=== PATIENT | female | born 1945 | race American Indian/Alaskan Native ===

== ENCOUNTER 2017-01-07 09:27 | Day surgery (SDC) | payer MEDICARE, OTHER ==
[2016-12-29 15:08] VITALS: BMI 32.3
[2017-01-07] MEDS ORDERED: Propofol 10 mg/ml Inj (20 ML) ONE (11:20)
[2017-01-07] MEDS ORDERED: Lidocaine 2% Inj (20ml) ONE (11:20)
[2017-01-07] MEDS ORDERED: Sodium Chloride 0.9% 1,000 ML IV SCH (12:30)
[2017-01-07 12:33] VITALS: RESP 16
[2017-01-07 13:30] VITALS: BP 151/79; PULSE 77; TEMP 97.8; O2SAT 97
== END 2017-01-07 14:27 | disposition home or self-care (01) ==
LOC: ENDO 09:27
PROVIDERS: ATTEND Internal Medicine Gastroenterology
DX: Z12.11 Encounter for screening for malignant neoplasm of colon (principal); K29.70 Gastritis, unspecified, without bleeding; K44.9 Diaphragmatic hernia without obstruction or gangrene; D12.5 Benign neoplasm of sigmoid colon; K63.5 Polyp of colon; I10 Essential (primary) hypertension; E78.5 Hyperlipidemia, unspecified; E66.01 Morbid (severe) obesity due to excess calories
CPT/HCPCS: 43239; 45390; 88305; 88342; J2704; J7040 ×2

== ENCOUNTER 2017-01-27 12:05 | Emergency (ER) | payer MEDICARE, OTHER ==
[2017-01-27 12:05] VITALS: BMI 32.3
[2017-01-27 12:15] VITALS: RESP 16; TEMP 97.8
--- NOTE | 2017-01-27 13:12 | ED PDOC ---
Arrival/HPI - General Chief Complaint: Hip Pain Time Seen by Provider: 01/27/17 12:18 Historian: Patient - History of Present Illness Narrative History of Present Illness (Text): 01/27/17 12:53 71yo female with PMHx of left gluteal pain x one week. States Pain is when she moves in certain positions or turns. Notes history of right knee pain, states she sees orthopaedist for the pain. States she did not take any analgesic. Denies trauma, fall, saddle anesthesia, focal weakness, abdominal pain, urinary/ fecal incontinence, any other complaint. Past Medical History - Provider Review Nursing Documentation Reviewed: Yes - Infectious Disease Hx of Infectious Diseases: None - Tetanus Immunization Tetanus Immunization: Unknown - Cardiac Hx Hypertension: Yes - Pulmonary Hx Respiratory Disorders: No - Neurological Hx Neurological Disorder: No - HEENT Hx HEENT Disorder: No - Renal Hx Renal Disorder: No - Endocrine/Metabolic Hx Endocrine Disorders: No - Hematological/Oncological Hx Anemia: Yes Hx Blood Transfusions: Yes - Integumentary Hx Dermatological Disorder: No - Musculoskeletal/Rheumatological Hx Musculoskeletal Disorders: Yes Hx Arthritis: Yes - Gastrointestinal Hx Gastrointestinal Disorders: No - Genitourinary/Gynecological Hx Genitourinary Disorders: No - Psychiatric Hx Psychophysiologic Disorder: No Hx Emotional Abuse: No Hx Physical Abuse: No Hx Substance Use: No - Surgical History Hx Cholecystectomy: Yes Hx Hysterectomy: Yes Hx Orthopedic Surgery: Yes (R KNEE, R WRIST) - Anesthesia Hx Anesthesia Reactions: No Hx Malignant Hyperthermia: No - Suicidal Assessment Feels Threatened In Home Enviroment: No Family/Social History - Physician Review Nursing Documentation Reviewed: Yes Family/Social History: Unknown Family HX Smoking Status: Former Smoker Hx Alcohol Use: No Hx Substance Use: No Allergies/Home Meds Allergies/Adverse Reactions: Allergies aspirin Adverse Reaction (Verified 01/27/17 12:07) VOMITING Home Medications: Home Meds Medication Instructions Recorded Confirmed Vitamin B Complex & Vitamin C 1 tab PO DAILY 07/28/12 01/27/17 [Strovite] Atorvastatin [Lipitor] 80 mg PO HS 03/26/16 01/27/17 amLODIPine [Norvasc] 10 mg PO DAILY 03/26/16 01/27/17 Ezetimibe 10 mg PO DAILY 12/29/16 01/27/17 Triamterene/Hydrochlorothiazid 1 tab PO DAILY 12/29/16 01/27/17 [Triamterene-Hctz 37.5-25 mg Cp] Calcium Carbonate/Vitamin D3 1 each PO BID 01/07/17 01/27/17 [Calcium 500-Vit D3 600 Tablet] Review of Systems - Physician Review All systems were reviewed & negative as marked: Yes - Review of Systems Constitutional: Normal Eyes: Normal ENT: Normal Respiratory: Normal Cardiovascular: Normal Gastrointestinal: Normal Genitourinary Female: Normal Musculoskeletal: Arthralgias (Left gleuteus pain) Skin: Normal Neurological: Normal Endocrine: Normal Hemo/Lymphatic: Normal Psychiatric: Normal Physical Exam Vital Signs Temp Pulse Resp BP Pulse Ox 01/27/17 14:23 65 16 150/84 97 01/27/17 12:10 97.8 F 77 16 150/90 99 Temperature: Afebrile Blood Pressure: Normal Pulse: Regular Respiratory Rate: Normal Appearance: Positive for: Well-Appearing, Non-Toxic, Comfortable Pain Distress: None Mental Status: Positive for: Alert and Oriented X 3 - Systems Exam Head: Present: Atraumatic, Normocephalic Pupils: Present: PERRL Extroacular Muscles: Present: EOMI Conjunctiva: Present: Normal Mouth: Present: Moist Mucous Membranes Neck: Present: Normal Range of Motion Respiratory/Chest: Present: Clear to Auscultation, Good Air Exchange. No: Respiratory Distress, Accessory Muscle Use Cardiovascular: Present: Regular Rate and Rhythm, Normal S1, S2. No: Murmurs Abdomen: Present: Normal Bowel Sounds. No: Tenderness, Distention, Peritoneal Signs Back: Present: Normal Inspection Upper Extremity: Present: Normal Inspection. No: Cyanosis, Edema Lower Extremity: Present: Normal Inspection, NORMAL PULSES, Normal ROM, Neurovascularly Intact. No: Edema, CALF TENDERNESS, Cem's Sign, Tenderness, Swelling, Erythema, Deformity, Temperature Abnormalties Neurological: Present: GCS=15, CN II-XII Intact, Speech Normal Skin: Present: Warm, Dry, Normal Color. No: Rashes Psychiatric: Present: Alert, Oriented x 3, Normal Insight, Normal Concentration Medical Decision Making ED Course and Treatment: 01/27/17 20:05 Hip xray - Extensive left hip DJD noted. Result was DW the pt. She declined pain medication in ED. Ambualtory with a cane. She noted that she had similar pain on her right hip which improved after she was given ???IM injection to the area by her PMD. She plan to f/u with her PMD. TRT ED for any new or worsening symptoms. - RAD Interpretation Radiology Orders: 01/27/17 12:22 SACRUM &/or COCCYX (MIN 2VW) [RAD] Stat 01/27/17 12:24 Hip Bilateral [HIP MIN 3V W/ PELVIS ELOINA] [RAD] Stat - Medication Orders Current Medication Orders: Discontinued Medications Tramadol HCl (Ultram) 50 mg PO STAT STA Stop: 01/27/17 12:29 Last Admin: 01/27/17 13:00 Dose: Not Given Non-Admin Reason: Patient Refused Disposition/Present on Arrival - Present on Arrival Any Indicators Present on Arrival: No History of DVT/PE: No History of Uncontrolled Diabetes: No Urinary Catheter: No History of Decub. Ulcer: No History Surgical Site Infection Following: None - Disposition Have Diagnosis and Disposition been Completed?: Yes Diagnosis: Hip pain Disposition: HOME/ ROUTINE Disposition Time: 13:55 Patient Plan: Discharge Condition: STABLE Discharge Instructions (ExitCare): Hip Pain (ED) Additional Instructions: Follow up with your Orthopedist Return to ED for any new or worsening symptoms Prescriptions: traMADol [Ultram] 50 mg PO TID #10 tab Referrals: Jose Ramon Monet MD [Primary Care Provider] - Follow up with primary Jefe Collier MD [Staff Provider] - Follow up with primary
[2017-01-27 14:25] VITALS: BP 150/84; PULSE 65; O2SAT 97
--- NOTE | 2017-01-27 15:31 | RAD ---
PROCEDURE: Radiographs of the Sacrum and Coccyx HISTORY: Left gluteal pain COMPARISON: None available. TECHNIQUE: Frontal and lateral views of the sacrum and coccyx FINDINGS: BONES: Sacrum and coccyx unremarkable. No fracture or focal lesion. SACROILIAC JOINTS: There is mild degenerative osteoarthrosis in the sacroiliac joints. OTHER FINDINGS: None. IMPRESSION: No acute fracture or bone destruction.
--- NOTE | 2017-01-28 11:16 | RAD ---
PROCEDURE: Radiographs of the pelvis and bilateral hips HISTORY: left hip COMPARISON: None. FINDINGS: BONES: The pelvic ring is intact. There is no acute fracture or bone destruction. Bone mineralization is normal. JOINTS: Right hip: Mild degenerative osteoarthrosis with mild reduced joint space and marginal spurring. Left hip: Moderate degenerative osteoarthrosis with mild reduced joint space and marginal osteophytes. . Sacroiliac Joints: Mild degenerative osteoarthrosis. Pubic symphysis: Mild osteitis pubis. SOFT TISSUES: There are multiple calcifications overlying the left femoral head and neck. OTHER FINDINGS: None. IMPRESSION: 1. Moderate degenerative osteoarthrosis in the left hip joint. Multiple calcifications overlying the left femoral head and neck could represent loose bodies or soft tissue calcifications. 2. Mild degenerative osteoarthrosis in the right hip joint.
== END 2017-01-27 14:23 | disposition home or self-care (01) ==
LOC: ED 12:05
DX: M25.552 Pain in left hip (principal); I10 Essential (primary) hypertension; Z87.891 Personal history of nicotine dependence